=== PATIENT | male | born 1935 | race Caucasian/White ===

== ENCOUNTER 2016-08-27 09:07 | Emergency (ER) | payer MEDICARE, OTHER ==
[~2016-08-27 09:07] MED LIST: ASPIRIN81 MG PO; CARDIZEM SR PO; CIPRO PO; COQ-1010 MG PO; COUMADIN PO; DOMPERIDONE; LIPITOR PO; LISINOPRIL PO; METOPROLOL SUCC50 MG; PROTONIX PO; TOPROL XL PO; ZITHROMAX
[2016-08-27 09:41] LABS: INR 2.4; PROTHROMBIN TIME (PATIENT) 26.8 SECONDS (9.5-12.4)
[2016-08-27 09:49] LABS: PARTIAL THROMBOPLASTIN TIME 41.2 SECONDS (25.6-38.1)
== END 2016-08-27 10:01 | disposition home or self-care (01) ==
LOC: SED 09:07
PROVIDERS: Emergency Medicine
DX: S51.812D Laceration without foreign body of left forearm, subsequent encounter (principal); I48.91 Unspecified atrial fibrillation; Z88.0 Allergy status to penicillin; Z79.899 Other long term (current) drug therapy; Z79.82 Long term (current) use of aspirin; Z79.01 Long term (current) use of anticoagulants; W22.8XXD Striking against or struck by other objects, subsequent encounter; Y92.9 Unspecified place or not applicable
CPT/HCPCS: 12002; 85610; 85730; 99283

== ENCOUNTER 2016-10-23 09:35 | Emergency (ER) | payer MEDICARE, OTHER ==
--- NOTE | ~2016-10-23 | CR63 ---
[facility] A Service of [facility] RADIOLOGY TEXT RESULTS PATIENT: ZOE AMBROCIO LOCATION: SED : 31 UNIT #: [id number] AGE: [address]: Carlos Wilson MD SEX: M ORDER DR: [id number] [address] [address] [id number] MR#: [id number] Acc #: [id number] NAME: ZOE AMBROCIO : 1935 SEX: M STUDY DATE/TIME: 10/23/2016 9:58 UNIT: SED ROOM: STUDY DESCRIPTION: CR Chest 2 View Attending Physician: Carlos Wilson M.D. Ordering Physician: Carlos Wilson M.D. Primary Care Physician: Ramos Ashraf M.D. MEDICAL IMAGING REPORT This report is preliminary unless electronic signature is present. EXAM PA and lateral chest radiograph. INDICATION Cough for a few days. FINDINGS Comparison is made to a prior exam from May 19, 2014. Cardiomegaly is identified. Overall lung volumes are diminished. There is what appears to be chronic scarring at the lung bases bilaterally but there may be some superimposed infiltrate at the left lung base when compared to the prior studies. There are background changes of COPD. 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 Some questionable infiltrate seen at the left lung base superimposed on chronic scarring. Followup exam to document resolution is suggested. 2. Cardiomegaly without evidence of vascular congestion. Dictated by... Christine Oconnell M.D. THIS IS AN ELECTRONICALLY VERIFIED REPORT Christine Oconnell M.D. at 10/23/2016 3:27 PM AFF/tmw TD: 10/23/2016 13:51 JOB #: [id number] [facility] A Service of [facility] RADIOLOGY TEXT RESULTS PATIENT: ZOE AMBROCIO LOCATION: SED : 33 UNIT #: [id number] AGE: [address]: Carlos Wilson MD SEX: M ORDER DR: MEDICAL IMAGING REPORT Page 1 of 1
[2016-10-23 10:27] LABS: INR 3.1; PROTHROMBIN TIME (PATIENT) 35.2 SECONDS (9.5-12.4)
== END 2016-10-23 11:07 | disposition home or self-care (01) ==
LOC: SED 09:35
PROVIDERS: Emergency Medicine
DX: J18.9 Pneumonia, unspecified organism (principal); J04.0 Acute laryngitis; K21.9 Gastro-esophageal reflux disease without esophagitis; I48.91 Unspecified atrial fibrillation; Z88.0 Allergy status to penicillin; Z79.82 Long term (current) use of aspirin; Z79.899 Other long term (current) drug therapy
CPT/HCPCS: 36415; 71020; 85610; 99283